=== PATIENT | female | born 1970 | race Caucasian/White ===

== ENCOUNTER 2016-12-07 15:44 | Emergency (ER) | payer OTHER ==
[~2016-12-07] VITALS: Ht 167.6 cm; Wt 86.4 kg
[2016-12-07] MEDS ORDERED: ARIP5TAB8 PO (16:09)
[2016-12-07] MEDS ORDERED: SUCR1TAB PO (16:09)
[2016-12-07] MEDS ORDERED: ACET1TAB12 PO (16:09)
[2016-12-07] MEDS ORDERED: LABE100 PO (16:09)
[2016-12-07] MEDS ORDERED: LISI-662 PO (16:09)
[2016-12-07] MEDS ORDERED: GABA-531 PO (16:09)
[2016-12-07] MEDS ORDERED: MECL-111 PO (16:09)
[2016-12-07] MEDS ORDERED: ALPR0.5T8 PO (16:09)
[2016-12-07] MEDS ORDERED: FERR-89 PO (16:09)
[2016-12-07] MEDS ORDERED: CITA20TA9 PO (16:11)
[2016-12-07] MEDS ORDERED: FOLI1 PO (16:11)
[2016-12-07] MEDS ORDERED: ASPI81 PO (16:11)
[2016-12-07] MEDS ORDERED: DICY10 PO (16:11)
[2016-12-07] MEDS ORDERED: ATOR10TA84 PO (16:11)
[2016-12-07] MEDS ORDERED: OMEP20 PO (16:11)
[2016-12-07 16:49] LABS: BASOPHILS # (AUTO) 0.05 K/uL (0.00-0.20); BASOPHILS % (AUTO) 0.5 % (0.0-2.0); EOSINOPHILS # (AUTO) 0.21 K/uL (0.00-0.70); EOSINOPHILS % (AUTO) 1.87 % (1.0-6.0); HEMATOCRIT 31.8 % (36-46); HEMOGLOBIN 10.7 g/dL (12.0-16.0); LYMPHOCYTES # (AUTO) 1.8 K/uL (1.0-4.8); LYMPHOCYTES % (AUTO) 15.7 % (22.0-44.0); MEAN CORPUSCULAR HEMOGLOBIN 29.2 pg (26.0-34.0); MEAN CORPUSCULAR HGB CONC 33.5 G/dL (31.0-37.0); MEAN CORPUSCULAR VOLUME 87 fL (80-100); MONOCYTES # (AUTO) 0.8 K/uL (0.1-1.0); MONOCYTES % (AUTO) 6.9 % (2.0-9.0); NEUTROPHILS # (AUTO) 8.4 K/uL (1.8-7.7); RED BLOOD CELL COUNT(AUTO) 3.65 MIL/uL (4.00-5.20); RED CELL DISTRIBUTION WIDTH 17.6 % (11.5-14.5)
[2016-12-07 16:57] LABS: CALCIUM, TOTAL 8.7 mg/dL (8.8-10.5); CREATININE 3.8 mg/dL (0.60-1.30); POTASSIUM 3.3 mmol/L (3.5-5.1)
[2016-12-07 16:58] LABS: PROTHROMBIN TIME 10.3 SEC (9.4-11.6)
[2016-12-07 17:02] LABS: PLATELET COUNT (AUTO) 61 K/uL (150-450)
[2016-12-07 17:03] LABS: PLATELET MORPHOLOGY COMMENT LARGE PLTS PRESENT
[2016-12-07 17:04] LABS: ALBUMIN 3.6 g/dL (3.4-5.0); BILIRUBIN,TOTAL 2.1 mg/dL (0.1-1.0); TOTAL PROTEIN, SERUM 7.1 g/dL (6.4-8.2)
[2016-12-07 18:22] VITALS: BP 150/81
== END 2016-12-07 18:43 | disposition home or self-care (01) ==
LOC: EMS 15:48
DX: F20.9 Schizophrenia, unspecified (principal); F22 Delusional disorders; F41.9 Anxiety disorder, unspecified; F32.9 Major depressive disorder, single episode, unspecified; N18.9 Chronic kidney disease, unspecified; I12.9 Hypertensive chronic kidney disease with stage 1 through stage 4 chronic kidney disease, or unspecified chronic kidney disease; K21.9 Gastro-esophageal reflux disease without esophagitis; Z88.6 Allergy status to analgesic agent; Z79.82 Long term (current) use of aspirin; Z86.73 Personal history of transient ischemic attack (TIA), and cerebral infarction without residual deficits
CPT/HCPCS: 93005; 99285